=== PATIENT | female | born 1965 | race Caucasian/White ===

== ENCOUNTER 2022-03-17 19:42 | Emergency (ER) | payer SELFPAY ==
[~2022-03-17] VITALS: Ht 162.6 cm; Wt 64.0 kg
[2022-03-17 19:58] VITALS: BP 124/76
== END 2022-03-17 21:11 | disposition left against medical advice (07) ==
LOC: ER 19:43
DX: R07.81 Pleurodynia (principal); Z53.21 Procedure and treatment not carried out due to patient leaving prior to being seen by health care provider
CPT/HCPCS: 71046